=== PATIENT | female | born 1980 | race Caucasian/White ===

== ENCOUNTER 2020-05-15 17:18 | Emergency (ER) | payer OTHER ==
[~2020-05-15] VITALS: Ht 172.7 cm; Wt 52.3 kg
[2020-05-15 17:52] VITALS: BP 158/100
== END 2020-05-15 18:24 | disposition home or self-care (01) ==
LOC: ER 17:31
DX: H92.01 Otalgia, right ear (principal); Z88.0 Allergy status to penicillin; Z88.1 Allergy status to other antibiotic agents; Z91.040 Latex allergy status
CPT/HCPCS: 99281